=== PATIENT | female | born 1955 ===

== ENCOUNTER 2017-03-02 10:18 | Emergency (ER) | payer OTHER ==
--- NOTE | 2017-03-02 11:10 | UC ---
Raleigh Martinez Rebecca, scribed for Asif Poe MD on 03/02/17 at 1036 . Respiratory Complaint HPI - HPI Summary HPI Summary: PT is a 61 y/o F who presents to [facility] with concerns over a cold for 4 days. She c/o nonproductive cough, sneezing, bilateral ear pain, swollen glands, sore throat, difficulty swallowing, subjective fever, chills, intermittent wheezing, mild sinus pressure, SANTOS, photophobia and watery eye drainage. Denies ear drainage, edema, SOB and CP. Sx aggravated and alleviated by nothing. Traveled 4 days ago from [place], [place]. PMHx bronchitis in November. - History of Current Complaint Chief Complaint: UCRespiratory Stated Complaint: RESP Time Seen by Provider: 03/02/17 10:30 Hx Obtained From: Patient Onset/Duration: Lasting Days - 4 days, Still Present Severity Currently: None Pain Intensity: 0 Pain Scale Used: 0-10 Numeric Character: Cough: Nonproductive Aggravating Factors: Nothing Alleviating Factors: Nothing Associated Signs And Symptoms: Positive: Fever, Chills, Wheezing. Negative: Edema - Allergies/Home Medications Allergies/Adverse Reactions: Allergies Allergy/AdvReac Type Severity Reaction Status Date / Time No Known Allergies Allergy Verified 03/02/17 10:24 Home Medications: Home Medications Atenolol TAB* [Tenormin TAB* 25 MG] 25 mg PO DAILY 03/02/17 [History Confirmed 03/02/17] Atorvastatin* [Lipitor*] 20 mg PO 1700 03/02/17 [History Confirmed 03/02/17] Empagliflozin-Linagliptin [Glyxambi 10-5 mg] 1 tab PO 03/02/17 [History] FLUoxetine CAP* [PROzac CAP*] 20 mg PO DAILY 03/02/17 [History Confirmed ] Insulin Detemir [Levemir Flextouch] 100 unit SC 03/02/17 [History] Lisinopril/HCTZ 20/25(NF) [Zestoretic 20/25(NF)] 1 tab PO DAILY 03/02/17 [ History Confirmed 03/02/17] glipiZIDE TAB* [Glucotrol TAB*] 10 mg PO DAILY 03/02/17 [History Confirmed 03/02] metFORMIN* [Glucophage 1000 MG TAB *] 1,000 mg PO BID 03/02/17 [History Confirmed 03/02/17] PMH/Surg Hx/FS Hx/Imm Hx Endocrine History: Diabetes, Dyslipidemia - HLD Cardiovascular History: Hypertension Respiratory History: Bronchitis - November 2016 Cancer History: Other Other Cancer History: Lymphoma 2009 - Surgical History Surgical History: Yes Surgery Procedure, Year, and Place: ablation. breast bx - Family History Known Family History: Positive: Hypertension - Social History Alcohol Use: Occasionally Substance Use Type: None Smoking Status (MU): Never Smoked Tobacco Review of Systems Constitutional: Fever, Chills Skin: Negative Eyes: Drainage - watery, Photophobia ENT: Sore Throat, Ear Ache, Other - Difficulty swallowing, sneezing, swollen glands, sinus pressure Respiratory: Cough, Other - Wheezing Cardiovascular: Negative Gastrointestinal: Negative Genitourinary: Negative Motor: Negative Neurovascular: Negative Musculoskeletal: Negative Neurological: Headache Psychological: Negative All Other Systems Reviewed And Are Negative: Yes - Comments Additional Review of Systems Comments: NEGATIVE: Ear drainage, edema, SOB and CP. Physical Exam Triage Information Reviewed: Yes Vital Signs: Initial Vital Signs Temp 97.9 F 03/02/17 10:20 Pulse 74 03/02/17 10:20 Resp 18 03/02/17 10:20 BP 119/60 03/02/17 10:20 Pulse Ox 99 03/02/17 10:20 Vital Signs Reviewed: Yes - Additional Comments The patient is well-nourished in no acute distress and in no acute pain. The skin is warm and dry and skin color reflects adequate perfusion. HEENT: The head is normocephalic and atraumatic. The pupils are equal and reactive. The conjunctivae are clear and without drainage. Slight rhinorrhea in the nares. Mouth reveals moist mucous membranes and the throat is without erythema and exudate. The external ears are intact. The ear canals have wax in them without drainage. The tympanic membranes are intact. The sinuses have no tenderness to percussion. Neck is supple with full range of motion and non-tender. No submandibular, posterior or anterior adenopathy. Respiratory: Chest is non-tender. Lungs are clear to auscultation and breath sounds are symmetrical and equal with no rales, rhonchi or wheezing. Cardiovascular: Hear is regular rate and rhythm. There is no murmur or rub auscultated. There is no peripheral edema and pulses are symmetrical and equal. Neurological: Patient is alert and oriented to person, place and time. Psychiatric: The patient has an appropriate affect and does not exhibit any anxiety or depression. Diagnostic Evaluation - Laboratory O2 Sat by Pulse Oximetry: 99 Respiratory Course/Dx - Course Course Of Treatment: Pt is a 61 y/o F who presents to [facility] with concerns over a cold for 4 days. She c/o nonproductive cough, sneezing, bilateral ear pain, swollen glands, sore throat, difficulty swallowing, subjective fever, chills, intermittent wheezing, mild sinus pressure, SANTOS, photophobia and watery eye drainage. Denies ear drainage, edema, SOB and CP. Traveled 4 days ago from [place], [place]. PMHx bronchitis in November. She will be D/C to home with Dx of acute bronchitis and sinusitis with Rx for Augmentin and a followup with her PCP when she returns to [place]. She understands and agrees. Patient medications reviewed this visit. - Differential Dx/Diagnosis Differential Diagnosis/HQI/PQRI: Bronchitis, Lower Resp Infection, Sinusitis Provider Diagnoses: Acute bronchitis. Acute sinusitis. Discharge - Discharge Plan Condition: Stable Disposition: HOME Prescriptions: Amoxicillin/Clavulanate TAB* [Augmentin TAB 875*] 875 mg PO BID #20 tab Patient Education Materials: Acute Bronchitis (ED), Sinusitis (ED) Referrals: No Primary Care Phys,NOPCP [Primary Care Provider] - Additional Instructions: Follow up with your primary care physician in 3-5 days or when you return home. The documentation as recorded by the Raleigh wong Rebecca accurately reflects the service I personally performed and the decisions made by , Asif Poe MD.
== END 2017-03-02 10:45 | disposition home or self-care (01) ==
LOC: UCEAST 10:18
DX: J20.9 Acute bronchitis, unspecified (principal); J01.90 Acute sinusitis, unspecified; E11.8 Type 2 diabetes mellitus with unspecified complications; Z79.84 Long term (current) use of oral hypoglycemic drugs; E78.5 Hyperlipidemia, unspecified; I10 Essential (primary) hypertension
CPT/HCPCS: 99202; G0463